=== PATIENT | male | born 1965 | race Caucasian/White ===

== ENCOUNTER 2023-10-01 21:15 | Emergency (ER) | payer OTHER, SELFPAY ==
--- NOTE | 2023-10-01 21:16 | XRR_ITS ---
PROCEDURE INFORMATION: Exam: XR Chest Exam date and time: 10/01/2023 9:27 PM Age: 58 years old Clinical indication: Chest pressure; Patient HX: Mediastinal chest pain that radiates posterior between shoulder blades; HTN; No other cardiac HX TECHNIQUE: Imaging protocol: Radiologic exam of the chest. Views: 1 view. COMPARISON: No relevant prior studies available. FINDINGS: Lungs: Lungs are clear. Pleural spaces: No pleural effusion. No pneumothorax. Heart/Mediastinum: Normal cardiomediastinal silhouette. Bones/joints: No acute osseous abnormality. XR/XR chest 1V portable [id number] IMPRESSION: No acute findings.
--- NOTE | 2023-10-01 21:17 | ECG_ITS ---
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 Measurements Intervals [place] Rate: 80 P: 59 MT: 142 QRS: 17 QRSD: 111 T: 56 QT: 388 QTc: 449 Interpretive Statements SINUS RHYTHM MODERATE INTRAVENTRICULAR CONDUCTION DELAY [110+ ms QRS DURATION] No previous ECG available for comparison Electronically Signed On 10-02-2023 14:13:27 PUBLIC SPEAKING INSTRUCTOR by Farhad Crowder M.D. [id number]
[2023-10-01 21:19] VITALS: BP 173/131; PULSE 86; RESP 18; TEMP 36.9; O2SAT 99; BMI 33.2
--- NOTE | 2023-10-01 21:26 | ED_ITS ---
HPI - Chest Pain General: Chief Complaint: Chest Pain Stated Complaint: cp, back pain Time Seen by Provider: 10/01/23 21:22 Source: patient Mode of arrival: ambulatory Limitations: no limitations History of Present Illness: 58-year-old male states that 2 hours ago he started having some burning sensati on into his abdomen felt like he needed to belch he had and that burning sensation up to his chest and back. States this lasted roughly an hour he states that since resolved he is concerned as he had not really had chest pain before. He states he does have a history reflux. Denies nausea or diaphoresis Associated symptoms: Reports abdominal pain; Deny dyspnea, fever(s), nausea or vomiting Review of Systems Const: Denies: fever(s), chills, body aches or change in appetite ENMT: Denies: throat pain or dental pain Card: Reports: chest pain Resp: Denies: dyspnea GI: Reports: abdominal pain; Denies: nausea, vomiting or diarrhea : Denies: dysuria Musc: Denies: neck pain or back pain Skin/Breast: Denies: rash Neuro: Denies: headache(s) Physical Exam Const: COMMON NORMALS: no acute distress, patient oriented x3 and healthy appearing HENMT: COMMON NORMALS: normocephalic and atraumatic HEAD & SCALP: normocephalic and atraumatic Eye: COMMON NORMALS: Equal, round and reactive pupils present and EOMs intact bilaterally PUPIL: Yes Equal, round and reactive pupils present Neck/C-Spine: COMMON NORMALS: full ROM and supple Chest: COMMONS NORMALS: normal inspection of the chest and normal palpation of entire chest wall Resp: COMMON NORMALS: normal respiratory effort, No retractions, No use of accessory muscles and clear to auscultation bilaterally AUSCULTATION: clear to auscultation bilaterally Cardio: COMMON NORMALS: regular rate, regular rhythm and No murmurs present (Cardio) RATE: regular rate RHYTHM: regular rhythm GI: COMMON NORMALS: Normal to inspection, nondistended, normoactive bowel sounds present, Soft to palpation, non-tender and no masses PALPATION: Yes Soft to palpation Extremity: COMMON NORMALS: normal to inspection and full ROM Neuro: COMMON NORMALS: patient oriented x3, moves all extremities and no focal motor deficits Psych: COMMON NORMALS: mental status grossly normal, Normal thought process present and cooperative THOUGHT PROCESS: Normal thought process present Skin: COMMON NORMALS: no rashes or lesions noted and no wounds GENERAL SKIN EXAM: no rashes or lesions noted Course Vital Signs: Vital signs: Vital Signs Temperature 98.5 F 10/01/23 21:19 Pulse Rate 67 10/01/23 22:30 Respiratory Rate 16 10/01/23 22:30 Blood Pressure 124/82 10/01/23 22:30 Pulse Oximetry 98 10/01/23 22:30 Oxygen Delivery Me thod Room Air 10/01/23 22:30 MDM - Chest Pain Medical Decision Making Patient presents for chest pain likely is nontender normal he is to follow-up with his PCP and return if worsening he understands agrees to plan. Medical Records I reviewed the patient's medical records. Lab Data I reviewed the patient's lab results. 10/01/23 21:51 10/01/23 21:51 Radiology Impressions Chest X-Ray 10/01/23 21:16 IMPRESSION: No acute findings. Laboratory Results WBC 7.99 10^3/uL (3.29-11.43) 10/01/23 21:51 RBC 4.98 10^6/uL (3.85-5.65) 10/01/23 21:51 Hgb 14.40 g/dL (11.27-16.99) 10/01/23 21:51 Hct 42.2 % (37-53) 10/01/23 21:51 MCV 84.7 fl (82-101) 10/01/23 21:51 MCH 28.9 pg (27-33) 10/01/23 21:51 MCHC 34.1 g/dL (30-55) 10/01/23 21:51 RDW 13.0 % (12.1-15.1) 10/01/23 21:51 Plt Count 272 10^3/cmm (157-399) 10/01/23 21:51 MPV 9.8 fL (7.4-10.4) 10/01/23 21:51 Neut % (Auto) 59.0 % 10/01/23 21:51 Lymph % (Auto) 29.0 % 10/01/23 21:51 [place] % (Auto) 7.8 % 10/01/23 21:51 Eos % (Auto) 3.0 % 10/01/23 21:51 Baso % (Auto) 0.8 % 10/01/23 21:51 Neut # (Auto) 4.72 10^3/uL (1.8-7.7) 10/01/23 21:51 Lymph # (Auto) 2.3 10^3/uL (0.8-4.8) 10/01/23 21:51 [place] # (Auto) 0.6 10^3/uL (0.2-0.9) 10/01/23 21:51 Eos # (Auto) 0.2 10^3/uL (0.0-0.8) 10/01/23 21:51 Baso # (Auto) 0.1 10^3/uL (0.0-0.1) 10/01/23 21:51 Nucleated RBC % (auto) 0 % 10/01/23 21:51 Nucleated RBCs # 0.0 /100WBC 10/01/23 21:51 PT 12.70 SECONDS (12.1-14.9) 10/01/23 21:51 INR 0.92 (0.8-1.2) 10/01/23 21:51 Sodium 143 mmol/L (136-145) 10/01/23 21:51 Potassium 3.5 mmol/L (3.5-5.1) 10/01/23 21:51 Chloride 103 mmol/L (98-107) 10/01/23 21:51 Carbon Dioxide 28 mmol/L (22-29) 10/01/23 21:51 Anion Gap 15.5 (5-19) 10/01/23 21:51 BUN 14 mg/dL (6-20) 10/01/23 21:51 Creatinine 1.0 mg/dL (0.7-1.2) 10/01/23 21:51 GFR Calculation 77.0 mL/min (90-130) L 10/01/23 21:51 Glucose 123 mg/dL (65-115) H 10/01/23 21:51 Calculated Osmolality 298 mOsm/kg (285-295) H 10/01/23 21:51 Calcium 9.5 mg/dL (8.5-10.5) 10/01/23 21:51 Total Bilirubin 0.4 mg/dL (0.15-1.2) 10/01/23 21:51 AST 22 U/L (0-40) 10/01/23 21:51 ALT 34 U/L (0-41) 10/01/23 21:51 Alkaline Phosphatase 145 U/L (40-130) H 10/01/23 21:51 Troponin T Baseline < 6 ng/L (0-15) 10/01/23 21:51 Troponin T 120 Minute 6.0 ng/L (0-15) 10/01/23 23:37 Delta Troponin T 0.32627 ABS# (0-10) 10/01/23 23:37 Total Protein 7.3 g/dL (6.6-8.7) 10/01/23 21:51 Albumin 4.8 g/dL (3.5-5.2) 10/01/23 21:51 Globulin 2.5 g/dL (1.3-4.6) 10/01/23 21:51 Lipase 42 U/L (13-60) 10/01/23 21:51 All radiology interpretation(s) finalized by discharge EKG Data EKG 1: I personally reviewed and interpreted this EKG as follows: EKG interpretation date: 10/01/23 EKG interpretation time: 21:17 Interpretation: nsr hr [address] or t wave abnormalities qrs 111 qtc 424 Discharge Plan Discharge Patient Disposition: Home Clinical Impression: Chest pain Condition: Stable Discharge Orders: Discharge ED (Routine); Ordered 10/02/23 Ordered By: Maya Payton Referrals: Awais Childs MD [Primary Care Provider] - 1-3 days Discharge Diet: Advance as tolerated Discharge Activity: Resume usual activity Patient Instructions: Chest Pain (ED) Coding Level of Care Code ED Scientific Photographer for Chg Raina
[2023-10-01 21:56] LABS: Basophils # 0.1 10^3/uL (0.0-0.1); Basophils % 0.8 %; Eosinophils # 0.2 10^3/uL (0.0-0.8); Hematocrit 42.2 % (37-53); Lymphocytes # 2.3 10^3/uL (0.8-4.8); Mean Corpuscular HGB Conc 34.1 g/dL (30-55); Mean Corpuscular Hemoglobin 28.9 pg (27-33); Mean Corpuscular Volume 84.7 fl (82-101); Mean Platelet Volume 9.8 fL (7.4-10.4); Monocytes # 0.6 10^3/uL (0.2-0.9); Monocytes % 7.8 %; Neutrophils # 4.72 10^3/uL (1.8-7.7); Nucleated Red Blood Cells % 0 %; Platelet Count 272 10^3/cmm (157-399); Red Blood Count 4.98 10^6/uL (3.85-5.65); White Blood Count 7.99 10^3/uL (3.29-11.43)
[2023-10-01] MEDS: aspirin 81 mg Chew Tablet 324 MG PO (22:01)
[2023-10-01 22:07] LABS: INR 0.92 (0.8-1.2)
[2023-10-01 22:14] LABS: Troponin(5th) Baseline < 6 ng/L (0-15)
[2023-10-01 22:16] LABS: Alanine Aminotransferase 34 U/L (0-41); Albumin Level 4.8 g/dL (3.5-5.2); Alkaline Phosphatase 145 U/L (40-130); Anion Gap 15.5 (5-19); Aspartate Amino Transferase 22 U/L (0-40); Blood Urea Nitrogen 14 mg/dL (6-20); Calcium 9.5 mg/dL (8.5-10.5); Carbon Dioxide 28 mmol/L (22-29); Chloride 103 mmol/L (98-107); Globulin 2.5 g/dL (1.3-4.6); Glucose 123 mg/dL (65-115); Osmolality Calculated 298 mOsm/kg (285-295); Potassium 3.5 mmol/L (3.5-5.1); Sodium 143 mmol/L (136-145); Total Bilirubin 0.4 mg/dL (0.15-1.2); Total Protein 7.3 g/dL (6.6-8.7)
[2023-10-01 22:30] VITALS: BP 124/82; PULSE 67; RESP 16; O2SAT 98
[2023-10-01 22:33] VITALS: BP 124/82; PULSE 62; O2SAT 98
[2023-10-01 22:43] LABS: Lipase 42 U/L (13-60)
[2023-10-01 22:45] VITALS: BP 109/77; PULSE 61; O2SAT 95
[2023-10-01 23:15] VITALS: BP 134/88; PULSE 64; O2SAT 97
--- NOTE | 2023-10-01 23:17 | ECG_ITS ---
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 Measurements Intervals [place] Rate: 57 P: 42 ND: 133 QRS: 12 QRSD: 100 T: 40 QT: 424 QTc: 415 Interpretive Statements SINUS BRADYCARDIA Compared to ECG 10/01/2023 21:17:18 Sinus rhythm no longer present Intraventricular conduction delay no longer present Electronically Signed On 10-02-2023 14:21:11 TRADE MARKER by Farhad Crowder M.D. [id number]
[2023-10-01 23:45] VITALS: BP 119/79; PULSE 59; O2SAT 99
[2023-10-02 00:11] LABS: Troponin 5 2HR Delta 0.00001 ABS# (0-10)
[2023-10-02 00:15] VITALS: BP 111/86; PULSE 59; O2SAT 97
[2023-10-02 00:18] VITALS: BP 111/86; PULSE 57; RESP 18; O2SAT 98
== END 2023-10-02 00:25 | disposition home or self-care (01) ==
PROVIDERS: Emergency Provider Emergency Medicine; PCP Family Medicine
DX: R07.9 Chest pain, unspecified (principal)
CPT/HCPCS: 71045; 80053; 83690; 84484; 85025; 85610; 93005; 99285

== ENCOUNTER 2024-08-30 07:37 | Outpatient (RCR) | payer BC, SELFPAY | END 2024-09-15 23:59 | disposition home or self-care (01) | LOC: SOT 07:37 | PROVIDERS: PCP Family Medicine; Visit Provider Orthopaedic Surgery | DX: M65.331 Trigger finger, right middle finger (principal) | CPT/HCPCS: 97022; 97110; 97140; 97165; 97530 ==

== ENCOUNTER 2024-09-16 06:00 | Outpatient (RCR) | payer BC, SELFPAY | END 2024-10-15 23:59 | disposition home or self-care (01) | LOC: SOT 06:00 | PROVIDERS: PCP Family Medicine; Visit Provider Orthopaedic Surgery | DX: Z47.89 Encounter for other orthopedic aftercare (principal); M65.331 Trigger finger, right middle finger | CPT/HCPCS: 97022; 97110; 97140 ==